=== PATIENT | male | born 1965 | race Caucasian/White ===

== ENCOUNTER 2018-09-23 06:18 | Day surgery (SDC) | payer OTHER ==
[~2018-09-23] VITALS: Ht 167.6 cm; Wt 75.3 kg
[2018-09-23 07:40] VITALS: Ht 167.6 cm; Wt 75.3 kg
[2018-09-23 07:56] VITALS: BP 137/80; PULSE 81; RESP 16
[2018-09-23] MEDS ORDERED: LISINOPRIL (08:01)
[2018-09-23] MEDS ORDERED: ATORVASTATIN (08:01)
[2018-09-23] MEDS ORDERED: GLIPIZIDE (08:01)
[2018-09-23] MEDS ORDERED: JANUVIA (08:01)
[2018-09-23] MEDS ORDERED: ASPIRIN (08:01)
[2018-09-23] MEDS ORDERED: FENTAnyl 50 MCG/ML VIAL ONE (09:00)
[2018-09-23] MEDS ORDERED: MIDAZOLAM 1 MG/ML 2 ML INJ ONE (09:00)
[2018-09-23 09:21] VITALS: BP 136/86; PULSE 76; RESP 15
== END 2018-09-23 11:15 | disposition home or self-care (01) ==
LOC: GIL 06:18
PROVIDERS: ATTEND Internal Medicine Gastroenterology
DX: Z12.11 Encounter for screening for malignant neoplasm of colon (principal); K64.8 Other hemorrhoids; E11.9 Type 2 diabetes mellitus without complications
CPT/HCPCS: 45378; 82962; J2250; J3010; Z7610